=== PATIENT | female | born 1995 | race Two or more races ===

== ENCOUNTER 2021-10-29 22:15 | Emergency (ER) | payer OTHER ==
--- NOTE | 2021-10-29 23:35 | XRAY Report ---
PROCEDURE: Foot 3 View RT INDICATIONS: Trauma TECHNIQUE: 3 views of the foot were acquired. COMPARISON: None. FINDINGS: Bones: Fifth digit proximal phalangeal comminuted fracture. Significant displacement. No dislocations . No suspicious bony lesions. Soft tissues: No tibiotalar joint effusion. Achilles tendon appears normal. IMPRESSION: Fifth digit proximal phalangeal comminuted fracture. Reviewed by: Champ Metz MD on 10/29/2021 11:34 PM PDT Approved by: Champ Metz MD on 10/29/2021 11:34 PM PDT Station ID: [id number]
--- NOTE | 2021-10-29 23:36 | ED Physician Documentation ---
PD HPI LOWER EXT INJURY - Stated complaint Stated Complaint: R TOE INJ - Chief complaint Chief Complaint: Ext Problem - History obtained from History obtained from: Patient - Additional information Additional information: Patient is a 26-year-old female with no significant past medical history with injury to the right fifth Toe well doing jujitsu. Patient is unsure of the exact maneuvers she was doing at that time but recalls having sudden pain to the pinky which had worsened throughout her jujitsu session. She denies previous injury. She is not taking any medications. Pain is sharp and throbbing and worse with ambulation. Review of Systems Constitutional: denies: Fever Nose: denies: Congestion Cardiac: denies: Chest pain / pressure Respiratory: denies: Dyspnea GI: denies: Abdominal Pain Musculoskeletal: reports: Extremity pain Neurologic: denies: Headache, Head injury PD PAST MEDICAL HISTORY - Past Medical History Past Medical History: No - Past Surgical History Past Surgical History: No - Present Medications Home Medications: Ambulatory Orders Medication Instructions Recorded Confirmed No Known Home Medications 10/29/21 10/29/21 - Allergies Allergies/Adverse Reactions: Allergies Allergy/AdvReac Type Severity Reaction Status Date / Time No Known Drug Allergies Allergy Verified 10/29/21 22:18 - Social History Does the pt smoke?: No Smoking Status: Never smoker Does the pt drink ETOH?: No Does the pt have substance abuse?: No - Immunizations Immunizations are current?: Yes PD ED PE NORMAL - General General: No acute distress, Well developed/nourished - HEENT HEENT: Atraumatic - Cardiac Cardiac: Strong equal pulses - Respiratory Respiratory: No respiratory distress - Derm Derm: No rash - Extremities Extremities: Other (Bruising and swelling to right pinky toe with tenderness, intact distal pulses, sensation and motor grossly intact, Compartments of foot are soft, no tenderness more proximally in foot) - Neuro Neuro: No motor deficit, No sensory deficit - Psych Psych: Normal mood Results - Vitals Vitals: Vital Signs - 24 hr 10/29/21 10/29/21 22:19 23:45 Temperature 36.4 C L 36.4 C L Heart Rate 73 70 Respiratory 16 16 Rate Blood Pressure 123/64 121/62 O2 Saturation 97 98 Oxygen O2 Source Room air PD MEDICAL DECISION MAKING - ED course Complexity details: reviewed results, d/w patient ED course: Patient with injury to right fifth toe. X-ray demonstrates a fracture. Boby splint was applied and patient was given crutches. She was advised on continuing with splint, ice, elevation, anti inflammatories and need for follow- up with [facility].Neurovascularly intact. Departure - Departure Disposition: 01 Home, Self Care Clinical Impression: Fracture of fifth toe, right, closed Qualifiers: Encounter type: initial encounter Qualified Code(s): S92.501A - Displaced unspecified fracture of right lesser toe(s), initial encounter for closed f racture Condition: Stable Instructions: ED Fx Toe Closed Comments: You have been evaluated for an injury to your right pinky toe. Your x-ray demonstrates a fracture. This may take 4 to 6 weeks to heal.Please use Motrin or Tylenol for pain. You should also use ice and elevate the foot to help with swelling. The toe has been boby taped to the toe next to it which will help in pain as well as healing. Please use the crutches as needed And follow-up with [facility] In the next week. Forms: Activity restrictions Discharge Date/Time: 10/29/21 23:45
[2021-10-29 23:47] VITALS: BP 121/62
== END 2021-10-29 23:45 | disposition home or self-care (01) ==
LOC: ED 22:15
DX: S92.514A Nondisplaced fracture of proximal phalanx of right lesser toe(s), initial encounter for closed fracture (principal); X58.XXXA Exposure to other specified factors, initial encounter; Y93.75 Activity, martial arts
CPT/HCPCS: 99283

== ENCOUNTER 2021-11-13 13:24 | Outpatient (CLI) | payer OTHER | END 2021-11-13 13:25 | disposition home or self-care (01) | LOC: RT 13:24 | PROVIDERS: ATTEND Student in an Organized Health Care Education/Training Program | DX: Z53.9 Procedure and treatment not carried out, unspecified reason (principal) ==

== ENCOUNTER 2021-12-12 07:58 | Emergency (ER) | payer OTHER ==
[2021-12-12 08:11] VITALS: BP 134/67
--- NOTE | 2021-12-12 09:05 | XRAY Report ---
PROCEDURE: Knee 3 View LT INDICATIONS: injury/pain TECHNIQUE: 3 views of the left knee(s) were acquired. COMPARISON: None. FINDINGS: Bones: No fractures or dislocations. No suspicious bony lesions. Soft tissues: Small to moderate joint effusion is seen. No suspicious soft tissue calcifications. IMPRESSION: Small to moderate suprapatellar joint effusion. No acute left knee fracture or dislocati on. Reviewed by: Micheal Reddy MD on 12/12/2021 9:03 AM PDT Approved by: Micheal Reddy MD on 12/12/2021 9:03 AM PDT Station ID: [id number]
--- NOTE | 2021-12-12 09:26 | ED Physician Documentation ---
PD HPI LOWER EXT INJURY - Stated complaint Stated Complaint: LT LEG PX - Chief complaint Chief Complaint: Ext Problem - History obtained from History obtained from: Patient - Additional information Additional information: Pt comes to the ED with CC of L knee pain after someone landed on it while sparring during jiu- this morning. No swelling. Medial pain noted. Pt is ambulatory, but it hurts to bear weight. Mildly limited flexion. No other injuries or prior injury to the knee. Review of Systems Ten Systems: 10 systems reviewed and negative Constitutional: reports: Reviewed and negative Eyes: reports: Reviewed and negative Ears: reports: Reviewed and negative Nose: reports: Reviewed and negative Throat: reports: Reviewed and negative Cardiac: reports: Reviewed and negative Respiratory: reports: Reviewed and negative GI: reports: Reviewed and negative : reports: Reviewed and negative Skin: reports: Reviewed and negative Musculoskeletal: reports: Joint pain, Pain with weight bearing. denies: Joint swelling Neurologic: reports: Reviewed and negative Psychiatric: reports: Reviewed and negative Endocrine: reports: Reviewed and negative Immunocompromised: reports: Reviewed and negative PD PAST MEDICAL HISTORY - Past Medical History Past Medical History: No - Past Surgical History Past Surgical History: No - Present Medications Home Medications: Ambulatory Orders Medication Instructions Recorded Confirmed No Known Home Medications 10/29/21 12/12/21 - Allergies Allergies/Adverse Reactions: Allergies Allergy/AdvReac Type Severity Reaction Status Date / Time No Known Drug Allergies Allergy Verified 12/12/21 08:11 - Social History Does the pt smoke?: No Smoking Status: Never smoker Does the pt drink ETOH?: No Does the pt have substance abuse?: No - Immunizations Immunizations are current?: Yes PD ED PE NORMAL - Vitals Vital signs reviewed: Yes - General General: Alert and oriented X 3, No acute distress, Well developed/nourished - HEENT HEENT: Atraumatic, PERRL, EOMI, Moist mucous membranes - Neck Neck: Supple, no meningeal sign - Cardiac Cardiac: Strong equal pulses - Respiratory Respiratory: No respiratory distress - Derm Derm: Normal color, Warm and dry, No rash - Extremities Extremities: No deformity, No edema, Other (Mildly limited ROM of L knee, secondary to pain. TTP moderate over medial joint line. No instability.) - Neuro Neuro: Alert and oriented X 3, No motor deficit, No sensory deficit - Psych Psych: Normal mood, Normal affect Results - Vitals Vitals: Oxygen O2 Source Room air - Rads (name of study) L knee XR Radiology: Final report received, EMP read indepedently, See rad report (Sm-mod peripatellar effusion. No fx) PD MEDICAL DECISION MAKING - ED course Complexity details: reviewed results, re-evaluated patient, considered differential, d/w patient ED course: XR was negative. Pt was placed in a knee immobilizer for comfort and advised regarding symptomatic management at home, as well as the need for follow-up. Departure - Departure Disposition: 01 Home, Self Care Clinical Impression: Left knee sprain Qualifiers: Encounter type: initial encounter Involved ligament of knee: unspecified ligament Qualified Code(s): S83.92XA - Sprain of unspecified site of left knee, initial encounter Condition: Stable Instructions: ED Sprain Knee Comments: Your x-rays look good. You may use the splint and crutches as needed until the knee is feeling better. Please avoid jujitsu or other high impact sports until the knee is pain-free. You may use ice, Tylenol and ibuprofen if needed for pain. Discharge Date/Time: 12/12/21 09:54
== END 2021-12-12 09:54 | disposition home or self-care (01) ==
LOC: ED 07:58
DX: S83.92XA Sprain of unspecified site of left knee, initial encounter (principal); X58.XXXA Exposure to other specified factors, initial encounter; Y93.75 Activity, martial arts
CPT/HCPCS: 99282